=== PATIENT | male | born 1975 | race Caucasian/White ===

== ENCOUNTER 2016-12-09 09:36 | Emergency (ER) | payer MEDICAID ==
[~2016-12-09] VITALS: Ht 172.7 cm; Wt 86.4 kg
[~2016-12-09 09:36] MED LIST: ACID1TAB7 PO; AZILSARTAN; CHLORTHALIDONE; IBUP-1221 PO; METR500T PO; MORP60CA17 PO
[2016-12-09] MEDS ORDERED: ACET325T14 PO (10:14)
[2016-12-09] MEDS ORDERED: SODIUM CHLORIDE 0.9% 1,000ML IV ONE (10:30)
[2016-12-09] MEDS ORDERED: ONDANSETRON 2MG/ML, 2ML IVPush ONE (10:30)
[2016-12-09] MEDS ORDERED: SODIUM CHLORIDE FLUSH 10ML SYR IVF ONE (10:30)
[2016-12-09] MEDS ORDERED: HYDROmorphone 1 MG/ML, 1ML ONE ×2 (10:45→11:18)
[2016-12-09] MEDS ORDERED: ONDANSETRON 2MG/ML, 2ML ONE (10:45)
[2016-12-09] MEDS: HYDROmorphone 1 MG/ML, 1ML IVPush PRN ×2 (10:49→11:20)
[2016-12-09 10:53] LABS: HEMATOCRIT 46.7 % (39.2-51.8); HEMOGLOBIN 15.7 g/dL (13.7-18.0); WHITE BLOOD COUNT 6.3 x10^3/uL (3.4-10)
[2016-12-09 11:04] LABS: BLOOD UREA NITROGEN 9 mg/dL (7-18)
[2016-12-09 11:07] LABS: ASPARTATE AMINO TRANSFERASE 10 U/L (15-37)
[2016-12-09] MEDS ORDERED: KETOROLAC 30 MG/1 ML ONE (12:26)
[2016-12-09] MEDS ORDERED: KETOROLAC 30 MG/1 ML IVPush ONE (12:30)
[2016-12-09 13:18] VITALS: BP 119/75
== END 2016-12-09 13:21 | disposition home or self-care (01) ==
LOC: ED 10:56
DX: M54.5 Low back pain (principal); R11.2 Nausea with vomiting, unspecified; I10 Essential (primary) hypertension; Z90.49 Acquired absence of other specified parts of digestive tract; Z88.0 Allergy status to penicillin
CPT/HCPCS: 36415; 74176; 76870; 80053; 81003; 83690; 85025; 93975; 96361; 96374; 96375; 99285; J1170; J1885; J2405; J7030

== ENCOUNTER 2018-07-08 20:50 | Emergency (ER) | payer MEDICAID ==
[~2018-07-08] VITALS: Ht 172.7 cm; Wt 91.9 kg
[~2018-07-08 20:50] MED LIST changes: +ACET325T14 PO
[2018-07-08 20:53] VITALS: BP 172/97
--- NOTE | 2018-07-08 21:08 | NUR ---
PT IS HAVING RIGHT LOWER FLANK PAIN, PAINFUL URINATION WITH BLOOD IN URINE. HAVING NAUSEA AND VOMITING. "FEELS LIKE I HAVE BEEN KICKED IN THE PRIVATES". ALSO HAVING SHORTNESS OF BREATH.
[2018-07-08] MEDS ORDERED: ONDANSETRON 2MG/ML, 2ML ONE (21:18)
[2018-07-08] MEDS ORDERED: HYDROmorphone 1 MG/ML, 1ML VIAL ONE (21:19)
[2018-07-08] MEDS ORDERED: SODIUM CHLORIDE 0.9% 1,000ML IV ONE (21:30)
[2018-07-08] MEDS ORDERED: ONDANSETRON 2MG/ML, 2ML IVPush ONE (21:30)
[2018-07-08] MEDS ORDERED: HYDROmorphone 2 MG/ML, 1ML IVPush PRN (21:30)
[2018-07-08 21:46] LABS: BASOPHILS # (AUTO) 0.06 x10^3/uL (0-0.1); BASOPHILS % (AUTO) 1 % (0-1); EOSINOPHILS # (AUTO) 0.89 x10^3/uL (0-0.4); EOSINOPHILS % (AUTO) 10 % (1-7); LYMPHOCYTES # (AUTO) 3.45 x10^3/uL (1-3.4); LYMPHOCYTES % (AUTO) 40 % (22-44); MD NO; MEAN CORPUSCULAR HEMOGLOBIN 29.2 pg (27.5-34.5); MEAN CORPUSCULAR HGB CONC 33.6 g/dL (33.2-36.2); MEAN PLATELET VOLUME 7.6 fL (7.4-10.4); MONOCYTES # (AUTO) 0.65 x10^3/uL (0.2-0.8); MONOCYTES % (AUTO) 8 % (2-9); NEUTROPHILS # (AUTO) 3.53 x10^3/uL (1.8-6.8); NEUTROPHILS % (AUTO) 41 % (42-75); PLATELET COUNT 339 x10^3/uL (130-400); RED BLOOD COUNT 5.26 x10^6/uL (4.38-5.82); RED CELL DISTRIBUTION WIDTH 13.8 % (9.4-14.8)
[2018-07-08 21:54] LABS: ALBUMIN 3.6 g/dL (3.4-5.0); ANION GAP 7 mmol/L (5-15); CALCIUM 8.3 mg/dL (8.5-10.1); CHLORIDE 111 mmol/L (98-107); CREATININE 1.14 mg/dL (0.7-1.3)
[2018-07-08 22:24] LABS: MICROSCOPIC NOT IND
[2018-07-08 22:25] LABS: CULTURE INDICATED? NO
[2018-07-08] MEDS ORDERED: LIDOCAINE-MPF 1%, 5ML ONE (22:35)
[2018-07-08] MEDS ORDERED: LIDODERM 5% PATCH TD ONE ×2 (22:48→23:00)
--- NOTE | 2018-07-08 22:59 | NUR ---
Patient/Caregiver given discharge instructions and they have confirmed that they understand the instructions. Patient ambulatory with steady gait.
[2018-07-08] MEDS ORDERED: LIDOCAINE 1%, 10ML INFIL ONE (23:00)
== END 2018-07-08 23:00 | disposition home or self-care (01) ==
LOC: ED 22:26
DX: N43.3 Hydrocele, unspecified (principal); N50.811 Right testicular pain; K40.90 Unilateral inguinal hernia, without obstruction or gangrene, not specified as recurrent; I10 Essential (primary) hypertension; Z90.49 Acquired absence of other specified parts of digestive tract
CPT/HCPCS: 20552; 36415; 74176; 76870; 80048; 81003; 82040; 85025; 93005; 96374; 96375; 99284; J1170; J2405; J7030

== ENCOUNTER 2018-08-27 11:33 | Emergency (ER) | payer MEDICAID ==
[~2018-08-27] VITALS: Ht 172.7 cm; Wt 93.6 kg
--- NOTE | 2018-08-27 13:51 | NUR ---
FROM LOBBY TO ROOM AT THIS TIME
--- NOTE | 2018-08-27 14:10 | NUR ---
PT W/ MUTIPLE CO OF 'SPIDER BITES' ALONG R UPPER THIGH AND R AXILLA, SUDDEN ONSENT NAUSEA AND DIZZINESS "EARLIER", R FLANK PAIN, AND L SIDED MOUTH DROOP X 1100 TODAY. SPEECH CLEAR, +STRENGTH X4. +RUE NUMBNESS, L SIDED MOUTH DROOP. BILAT WEAKNESS W/ EYE SQUEEZE SHUT AND EYE BROW RAISE NOTED. PT DENIES FEVER/CP/SOB/VOMITING OR DIARRHEA. PT SEEMS MOST CONCERNED WITH BACK PAIN. HX OF CKD. BP/SPO2/ECG MONITORING IN PLACE. NSR ON MONITOR. PT TEARFUL AND REQUESTING PAIN MEDICATIONS FOR BACK PAIN. IV ESTBLISHED. LABS DRAWN. PT AWARE OF NEED FOR UA. Addendum: 08/27/18 at 1447 by JUDY PT HYPERTENSIVE IN TRIAGE. REPORTS HX OF SAME, NON-COMPLIANT WITH MEDS "IT DECREASES MY LIBIDO AND I'M SINGLE". DENIES CP/MCKINNEY/BLOOD IN URINE.
[2018-08-27] MEDS ORDERED: CYCLOBENZAPRINE 10 MG TABLET PO ONE (14:39)
[2018-08-27] MEDS ORDERED: LORazepam 1MG TABLET PO ONE (15:00)
[2018-08-27] MEDS ORDERED: HYDROmorphone 1 MG/ML, 1ML INJ IM PRN (15:00)
[2018-08-27] MEDS ORDERED: HYDROmorphone 1 MG/ML, 1ML VIAL ONE (15:05)
[2018-08-27] MEDS ORDERED: CYCLOBENZAPRINE 10 MG TABLET ONE (15:05)
[2018-08-27] MEDS ORDERED: LORazepam 1MG TABLET ONE (15:06)
--- NOTE | 2018-08-27 15:13 | NUR ---
THU RN: PT MEDICATED PER EMAR. PT WAS ABLE TO PROVIDE PRIMARY RN WITH A URINE SAMPLE. COLLECTED AND SENT TO LAB.
[2018-08-27 15:20] LABS: BASOPHILS # (AUTO) 0.07 x10^3/uL (0-0.1); BASOPHILS % (AUTO) 1 % (0-1); EOSINOPHILS # (AUTO) 0.51 x10^3/uL (0-0.4); EOSINOPHILS % (AUTO) 5 % (1-7); LYMPHOCYTES # (AUTO) 2.58 x10^3/uL (1-3.4); LYMPHOCYTES % (AUTO) 26 % (22-44); MD NO; MEAN CORPUSCULAR HEMOGLOBIN 29.6 pg (27.5-34.5); MEAN CORPUSCULAR VOLUME 89.6 fL (81-97); MEAN PLATELET VOLUME 8.7 fL (7.4-10.4); MONOCYTES # (AUTO) 0.62 x10^3/uL (0.2-0.8); MONOCYTES % (AUTO) 6 % (2-9); NEUTROPHILS # (AUTO) 6.36 x10^3/uL (1.8-6.8); NEUTROPHILS % (AUTO) 63 % (42-75); PLATELET COUNT 319 x10^3/uL (130-400); RED BLOOD COUNT 5.09 x10^6/uL (4.38-5.82)
[2018-08-27 15:23] LABS: MICROSCOPIC NOT IND
[2018-08-27 15:24] LABS: CULTURE INDICATED? NO
[2018-08-27 15:30] LABS: ALANINE AMINOTRANSFERASE 25 U/L (12-78); ALBUMIN 3.8 g/dL (3.4-5.0); ANION GAP 6 mmol/L (5-15); CALCIUM 8.5 mg/dL (8.5-10.1); CHLORIDE 108 mmol/L (98-107); CREATININE 1.01 mg/dL (0.7-1.3)
[2018-08-27 15:35] LABS: ALKALINE PHOSPHATASE 55 U/L (45-117); BILIRUBIN,TOTAL 0.6 mg/dL (0.2-1.0); TOTAL PROTEIN 7.2 g/dL (6.4-8.2); TROPONIN I < 0.015 ng/mL (0.000-0.045)
--- NOTE | 2018-08-27 16:06 | NUR ---
PT REPORTS INCREASE IN SOB. RR 22. PT ABLE TO SPEAK IN FULL SENTENCES. SPO2 >90% ON RA. PWD. HR 70'S, NSR. ERP MADE AWARE. CHART UP FOR RECHECK
[2018-08-27 16:15] VITALS: BP 147/80
--- NOTE | 2018-08-27 16:56 | NUR ---
PT REPORTS IMPROVEMENT IN S/S SINCE ARRIVAL. DC EDUCATION PROVIDED, PT DEMONSTRATES UNDERSTANDING. PT AMBULATED STEADILY TO DC WITH RN. SO TO TRANSPORT PT HOME
== END 2018-08-27 16:58 | disposition home or self-care (01) ==
LOC: ED 16:52
DX: M54.5 Low back pain (principal); F41.1 Generalized anxiety disorder; R06.4 Hyperventilation; Z90.89 Acquired absence of other organs; Z90.49 Acquired absence of other specified parts of digestive tract
CPT/HCPCS: 36415; 70450; 80053; 81003; 84484; 85025; 87040; 93005; 96372; 99284; J1170

== ENCOUNTER 2018-11-04 19:40 | Emergency (ER) | payer MEDICAID ==
[~2018-11-04] VITALS: Ht 172.7 cm; Wt 87.6 kg
[2018-11-04 19:56] VITALS: BP 163/89
== END 2018-11-04 21:46 | disposition home or self-care (01) ==
LOC: ED 20:10
DX: S80.12XA Contusion of left lower leg, initial encounter (principal); M79.662 Pain in left lower leg; Z90.49 Acquired absence of other specified parts of digestive tract; X58.XXXA Exposure to other specified factors, initial encounter; Y93.89 Activity, other specified; Y92.89 Other specified places as the place of occurrence of the external cause; Y99.8 Other external cause status
CPT/HCPCS: 99284

== ENCOUNTER 2020-06-09 21:53 | Emergency (ER) | payer MEDICAID ==
[~2020-06-09] VITALS: Ht 172.7 cm; Wt 94.0 kg
[2020-06-09 21:59] VITALS: BP 135/94
[2020-06-09] MEDS ORDERED: HYDROcodone/APAP 5/325 TABLET ONE (22:21)
[2020-06-09] MEDS ORDERED: HYDROcodone/APAP 5/325 TABLET PO PRN (22:30)
--- NOTE | 2020-06-09 22:55 | NUR ---
PT IN BED WITH NO SIGNS OR SYMPTOMS OF ACUTE DSITRESS NOTED RESPIRATIONS EVEN AND UNLABORED STATES PAIN UNCHANGED SINCE ADMIN OF PO [place], DENIES OTHER NEED AT THIS TIME. BED RAILS UP BILATERALLY CALL LIGHT WITHIN REACH, FAMILY MEMBER AT BEDSIDE
--- NOTE | 2020-06-09 23:23 | NUR ---
RN IN ROOM TO APPLY SLING, PT UNABLE TO TOLERATE THAT POSITIONING FOR HIS ARM. PT SLING REMOVED, PT BACK TO POSITION OF COMFORT NO SIGNS OR SYMPTOMS OF ACUTE DSITRESS NOTED RESPIRATIONS EVEN AND UNLABORED
== END 2020-06-09 23:38 | disposition home or self-care (01) ==
LOC: ED 23:25
DX: G89.11 Acute pain due to trauma (principal); M79.631 Pain in right forearm; M25.521 Pain in right elbow; M79.621 Pain in right upper arm; I10 Essential (primary) hypertension; X58.XXXA Exposure to other specified factors, initial encounter; Y93.89 Activity, other specified; Y92.89 Other specified places as the place of occurrence of the external cause; Y99.8 Other external cause status
CPT/HCPCS: 99284